=== PATIENT | male | born 1950 ===

== ENCOUNTER 2023-09-12 05:20 | Day surgery (SDC) | payer OTHER ==
[2023-09-05 11:45] LABS: PH,URINE 7.5 (5.0-8.0); URINE APPEARANCE Clear; URINE BILIRRUBIN Negative (NEGATIVE); URINE BLOOD Negative; URINE COLOR Yellow; URINE GLUCOSE Negative (NEGATIVE); URINE LEUKOCYTE Negative; URINE NITRATE Negative; URINE PROTEIN Negative (NEGATIVE); URINE UROBILINOGEN 0.2 E.U./dl
[2023-09-05 11:51] LABS: URINE WBC 3.2 uL (0.0-23.2)
[2023-09-05 11:52] LABS: HEMATOCRIT 45.1 % (39.0-48.0); HEMOGLOBIN 15.9 g/dL (13-16.00); MEAN CELL VOLUME 88.3 fL (80.0-100.00); MEAN CORPUSCULAR HEMOGLOBIN 31.2 pg (27.00-32.0); MEAN CORPUSCULAR HGB CONC 35.3 g/dl (32.0-36.0); PLATELET COUNT 137 K/uL (150-450); RED CELL DISTRIBUTION WIDTH 13.8 % (11.5-14.5)
[2023-09-05 12:03] LABS: URINE BACTERIA 3.7 uL (0.0-1933); URINE EPITHELIAL CELLS 0.4 uL (0.0-38.8); URINE RBC 1.8 uL (0.0-20.8)
[2023-09-05 12:04] LABS: BILIRUBIN TOTAL 0.75 mg/dL (0.3-1.2); CALCIUM 8.9 mg/dL (8.5-10.1); CREATININE SERUM 0.73 mg/dL (0.70-1.30); GFR 105.03; POTASSIUM 4.64 mEq/L (3.5-5.1)
[2023-09-05 12:14] LABS: INR 1.05; PARTIAL THROMBOPLASTIN TIME 26.7 SECONDS (22.0-34.0)
[2023-09-12] MEDS ORDERED: BUPIVACAINE HCL/PF 0.5% 30ML ML ONE (06:46)
[2023-09-12] MEDS ORDERED: CEFAZOLIN SODIUM 1,000 MG VIAL ONE (06:50)
[2023-09-12] MEDS ORDERED: KETOROLAC TROMETHAMINE 30 MG VIAL ONE (08:28)
[2023-09-12] MEDS ORDERED: BUPIVACAINE HCL 30 ML VIAL IJ ONE (08:30)
[2023-09-12] MEDS ORDERED: KETOROLAC TROMETHAMINE 30 MG VIAL IV ONE (08:30)
[2023-09-12] MEDS ORDERED: CEFAZOLIN SODIUM 1,000 MG VIAL IV ONE (08:30)
[2023-09-12] MEDS ORDERED: TRAMADOL HCL50 MG PO (09:00)
[2023-09-12] MEDS ORDERED: KETO10TA2 PO (09:00)
[2023-09-12] MEDS ORDERED: MIRALAX17 GM PO (09:00)
[2023-09-12] MEDS ORDERED: TYLENOL ARTHRI650 MG PO (09:00)
[2023-09-12] MEDS ORDERED: ONDANSETRON HCL 2 MG/ML VIAL ONE (10:24)
== END 2023-09-12 14:40 | disposition home or self-care (01) ==
LOC: CIR.AMB 05:20
PROVIDERS: ATTEND Surgery
DX: K40.90 Unilateral inguinal hernia, without obstruction or gangrene, not specified as recurrent (principal); I10 Essential (primary) hypertension
CPT/HCPCS: 49650; C1781